=== PATIENT | female | born 1990 | race American Indian/Alaskan Native ===

== ENCOUNTER 2017-12-11 12:16 | Emergency (ER) | payer SELFPAY ==
[2017-12-11 15:55] LABS: Mean Corpuscular HGB Conc 29 % (30-34); Platelet Count 437 K/mm3 (140-440)
[2017-12-11 15:57] LABS: Hematocrit 29.2 % (30.3-42.9); Hemoglobin 8.5 gm/dl (10.1-14.3); Mean Corpuscular Hemoglobin 18 pg (28-32); Mean Corpuscular Volume 61 fl (79-97); Red Cell Distribution Width 20.3 % (13.2-15.2)
--- NOTE | 2017-12-11 16:10 | Cat Scan Report ---
FINAL REPORT PROCEDURE: CT HEAD/BRAIN WO CON TECHNIQUE: Computerized tomography of the head was performed without contrast material. HISTORY: fall, headache. COMPARISON: None FINDINGS: Opacification of few right mastoid air cells is present. The partially visualized paranasal sinuses, left mastoid air cells and bilateral middle ears are clear. Brain volume is age appropriate. There is no CT evident acute infarction. There is no remote infarct, intra or extra-axial hemorrhage. There is no mass effect or hydrocephalus. There is no gross mass lesion or leptomeningeal abnormality given limitation of lack of IV contrast. IMPRESSION: No CT evident acute intracranial process. Small partial opacification of the right mastoid air cells possibly simple effusion or granulation tissue. Clinically exclude active right mastoid inflammation.
[2017-12-11 19:33] VITALS: BP 112/85
[2017-12-11] MEDS ORDERED: MOTRIN PO ONE (20:17)
--- NOTE | 2017-12-11 20:25 | Emergency Department Report ---
ED Syncope HPI - General Chief Complaint: Syncope Stated Complaint: SYNCOPE Time Seen by Provider: 12/11/17 20:05 Source: patient - History of Present Illness Initial Comments: Patient is a 27-year-old female with a history of anemia and abnormal bleeding who presents to ED status post syncopal episode earlier this morning. Patient states she is 10 AM she was at work. Patient states she got up to get some water and did not make it to the water fountain. Patient states she woke up with her coworkers surrounding her and cannot recall does not know how long she was passed out. She patient states she had a syncopal episode a while back and states it due to her anemia due to blood loss. She states she's been on her cycle ongoing for the past 3 months. She states that she takes at home. She sounds a day and takes no other medication. Dizziness issues as no other medical conditions.. She denies fevers/chills/nausea since vomiting/abdominal pain/chest pain. Timing/Prior Episodes: single episode today - Related Data Allergies/Adverse Reactions: Allergies No Known Allergies Allergy (Unverified 12/11/17 14:11) ED Review of Systems ROS: Stated complaint: SYNCOPE Other details as noted in HPI Constitutional: denies: chills, fever Eyes: denies: eye pain, eye discharge, vision change ENT: denies: ear pain, throat pain Respiratory: denies: cough, shortness of breath, wheezing Cardiovascular: denies: chest pain, palpitations Endocrine: no symptoms reported Gastrointestinal: denies: abdominal pain, nausea, diarrhea Genitourinary: denies: urgency, dysuria, discharge Musculoskeletal: denies: back pain, joint swelling, arthralgia Skin: denies: rash, lesions Neurological: denies: headache, weakness, paresthesias Psychiatric: denies: anxiety, depression Hematological/Lymphatic: denies: easy bleeding, easy bruising ED Past Medical Hx - Past Medical History Previous Medical History?: Yes Additional medical history: Anemia hx - Surgical History Past Surgical History?: No - Social History Smoking Status: Never Smoker Substance Use Type: None ED Physical Exam - General Limitations: No Limitations General appearance: alert, in no apparent distress - Head Head exam: Present: atraumatic, normocephalic - Eye Eye exam: Present: normal appearance - ENT ENT exam: Present: mucous membranes moist - Neck Neck exam: Present: normal inspection - Respiratory Respiratory exam: Present: normal lung sounds bilaterally. Absent: respiratory distress, wheezes - Cardiovascular Cardiovascular Exam: Present: regular rate, normal rhythm. Absent: systolic murmur, diastolic murmur, rubs, gallop - GI/Abdominal GI/Abdominal exam: Present: soft, normal bowel sounds - Extremities Exam Extremities exam: Present: normal inspection - Back Exam Back exam: Present: normal inspection - Neurological Exam Neurological exam: Present: alert, oriented X3 - Psychiatric Psychiatric exam: Present: normal affect, normal mood - Skin Skin exam: Present: warm, dry, intact, normal color. Absent: rash ED Course Vital Signs 12/11/17 12/11/17 12/11/17 14:07 19:32 20:31 Temperature 98.1 F 97.5 F L Pulse Rate 79 77 Respiratory 16 17 16 Rate Blood Pressure 116/85 Blood Pressure 112/85 [Left] O2 Sat by Pulse 100 100 Oximetry ED Medical Decision Making - Lab Data Result diagrams: 12/11/17 14:53 12/11/17 20:33 - EKG Data EKG shows normal: sinus rhythm Rate: normal - Radiology Data Radiology results: report reviewed, image reviewed FINAL REPORT PROCEDURE: CT HEAD/BRAIN WO CON TECHNIQUE: Computerized tomography of the head was performed without contrast material. HISTORY: fall, headache. COMPARISON: None FINDINGS: Opacification of few right mastoid air cells is present. The partially visualized paranasal sinuses, left mastoid air cells and bilateral middle ears are clear. Brain volume is age appropriate. There is no CT evident acute infarction. There is no remote infarct, intra or extra-axial hemorrhage. There is no mass effect or hydrocephalus. There is no gross mass lesion or leptomeningeal abnormality given limitation of lack of IV contrast. IMPRESSION: No CT evident acute intracranial process. Small partial opacification of the right mastoid air cells possibly simple effusion or granulation tissue. Clinically exclude active right mastoid inflammation. Transcribed By: PETAR Dictated By: DELANEY TORRES MD Electronically Authenticated By: DELANEY TORRES MD Signed Date/Time: 12/11/17 1204 - Medical Decision Making 27-year-old female presents with syncopal episode. ED course: Patient is in no acute or respiratory distress. Vital signs stable. Patient reports feeling better and is in no pain. CBC: Within normal limits CMP:within normal limits Urinalysis and UPT: Negative EKG: See above Head CT: No evidence of acute intracranial process Discussed with patient lab findings -see above Patient is a low risk due to Marine syncopy rule. Patient has no history of congestive heart failure, hematocrit greater than 30, EKG within normal limits, denies shortness of breath and systolic pressure greater than 90. Orthostatic blood pressure: Normal Patient states she understands and will comply to follow-up. 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 Critical care attestation.: If time is entered above; I have spent that time in minutes in the direct care of this critically ill patient, excluding procedure time. ED Disposition Clinical Impression: Syncopal episodes Qualifiers: Syncope type: unspecified Qualified Code(s): R55 - Syncope and collapse Anemia Qualifiers: Anemia type: iron deficiency Iron deficiency anemia type: other iron deficiency Qualified Code(s): D50.8 - Other iron deficiency anemias Disposition: TO HOME OR SELFCARE Is pt being admited?: No Does the pt Need Aspirin: No Condition: Stable Instructions: Dysfunctional Uterine Bleeding (ED), Syncope (ED), Menorrhagia ( ED), Lightheadedness (ED) Additional Instructions: Make sure to follow up with the primary care physician as discussed. Make sure you are easy to 4 minutes per day. She increase her fluid intake daily. Continue to take your iron pills daily All labs and radiology studies in the ED were all normal If you have any worsening symptoms or develop new symptoms please return to ED immediately. Referrals: PRIMARY CARE, [Primary Care Provider] - 3-5 Days JHOANA LANCASTER MD [Referring] - 3-5 Days [facility] [Outside] - 3-5 Days LAYLA MAI MD [Staff Physician] - 3-5 Days RHEA GRANDE MD [Staff Physician] - 3-5 Days MAGALY GRANDE MD [Referring] - 3-5 Days ANGELICA GRANDE MD [Referring] - 3-5 Days Forms: Work/School Release Form(ED) Time of Disposition: 21:52
[2017-12-11 21:09] LABS: Alanine Aminotransferase 22 units/L (7-56); Albumin 4.7 g/dL (3.9-5); BUN/Creatinine Ratio 11; Blood Urea Nitrogen 8 mg/dL (7-17); Calcium 9.3 mg/dL (8.4-10.2); Hemolysis Index 10
[2017-12-11 21:30] LABS: HCG Qualitative,Urine Negative (Negative)
[2017-12-11 21:33] LABS: Bilirubin,Urine NEG (Negative); Color,Urine Yellow (Yellow); Mucus,Urine 2+ /HPF; Nitrite,Urine NEG (Negative); Protein,Urine <15 mg/dL mg/dL (Negative); Urobilinogen,Urine < 2.0 mg/dL (<2.0)
[2017-12-11 21:38] LABS: Blood,Urine Moderate (Negative)
== END 2017-12-11 22:05 | disposition home or self-care (01) ==
LOC: ED 12:16
DX: D64.9 Anemia, unspecified (principal)
CPT/HCPCS: 36415; 70450; 80053; 81001; 81025; 82140; 85027; 93005; 93010; 99284

== ENCOUNTER 2019-09-11 08:25 | Emergency (ER) | payer BC, OTHER ==
[2019-09-11 09:50] LABS: Mean Corpuscular HGB Conc 25 % (30-34); Platelet Count 262 K/mm3 (140-440)
[2019-09-11 09:57] LABS: Hematocrit 30.2 % (30.3-42.9); Hemoglobin 7.6 gm/dl (10.1-14.3); Mean Corpuscular Volume 52 fl (79-97)
[2019-09-11 09:58] LABS: Red Cell Distribution Width 24.1 % (13.2-15.2)
--- NOTE | 2019-09-11 10:00 | Emergency Department Report ---
HPI - General Chief Complaint: Abdominal Pain Time Seen by Provider: 09/11/19 09:46 - HPI HPI: Room 17 The patient is a 29-year-old female presenting with chief complaint of abdominal pain. The patient says she is had intermittent lower abdominal pain for approximately 4 days. Patient describes the pain as sharp and nonradiating. Patient states she's had slight dysuria since yesterday. Patient denies vaginal discharge or vaginal bleeding. Patient denies hematuria. Patient also states she's had lightheadedness for the past 3 days and increases upon standing. The patient states 1 week ago she noticed a swelling on the inside of her lower lip. Patient denies any trauma or drainage from the lesion. The patient states she took Benadryl and some "leftover" penicillin but it has not helped. Patient denies any history of fever Location: [See above] Duration: [See above] Quality: [See above] Severity: [See above] Timing: [See above] Context: [See above] Modifying factors: [See above] Associated signs and symptoms: [see above] ED Past Medical Hx - Past Medical History Previous Medical History?: Yes Additional medical history: Anemia hx - Surgical History Past Surgical History?: No - Family History Family history: no significant - Social History Smoking Status: Never Smoker Substance Use Type: None (denies illicit drug use) - Medications Home Medications: Home Medications Medication Instructions Recorded Confirmed Last Taken Type Ibuprofen [Motrin] 800 mg PO Q8HR PRN #20 tablet 12/11/17 Unknown Rx Azithromycin [Zithromax Z-MANUEL] 250 mg PO DAILY #6 tablet 03/01/19 Unknown Rx Benzonatate [Tessalon Perles] 100 mg PO Q12H PRN #20 capsule 03/01/19 Unknown Rx Ibuprofen [Motrin] 600 mg PO Q8H PRN #20 tablet 03/01/19 Unknown Rx Prednisone [predniSONE 10 mg 10 mg PO .TAPER #1 tab.ds.pk 03/01/19 Unknown Rx (6-Day Pack, 21 Tabs)] ED Review of Systems ROS: Stated complaint: LOW ABD PAIN/LOW IRON CT Other details as noted in HPI Constitutional: denies: fever Eyes: denies: eye pain ENT: other (lip pain) Respiratory: no symptoms reported Cardiovascular: denies: chest pain Endocrine: no symptoms reported Gastrointestinal: abdominal pain. denies: nausea, vomiting, diarrhea Genitourinary: denies: dysuria Musculoskeletal: denies: back pain Neurological: denies: headache Physical Exam - Physical Exam Vital Signs: Vital Signs 09/11/19 09:00 Temperature 98.8 F Pulse Rate 93 H Respiratory 18 Rate Blood Pressure 126/43 O2 Sat by Pulse 100 Oximetry Physical Exam: GENERAL: The patient is well-developed well-nourished female lying on stretcher not appearing to be in acute distress. [] HEENT: Normocephalic. Atraumatic. Extraocular motions are intact. Patient has moist mucous membranes. There is an approximately 1 cm diameter cystic appearing lesion inside of the lower left lip. There is no surrounding eryt carlito. There is no drainage NECK: Supple. No meningitic signs are noted. There is no adenopathy noted. CHEST/LUNGS: Clear to auscultation. There is no respiratory distress noted. HEART/CARDIOVASCULAR: Regular. There is no tachycardia. There is no gallop rub or murmur. ABDOMEN: Abdomen is soft, with mild discomfort to palpation in the right lower quadrant, suprapubic and left lower quadrant. Patient has normal bowel sounds. There is no abdominal distention. SKIN: There is no rash. There is no edema. There is no diaphoresis. NEURO: The patient is awake, alert, and oriented. The patient is cooperative. The patient has normal speech MUSCULOSKELETAL: There is no evidence of acute injury. ED Course Vital Signs 09/11/19 09:00 Temperature 98.8 F Pulse Rate 93 H Respiratory 18 Rate Blood Pressure 126/43 O2 Sat by Pulse 100 Oximetry ED Medical Decision Making - Lab Data Result diagrams: 09/11/19 08:41 09/11/19 08:41 Laboratory Tests 09/11/19 09/11/19 09/11/19 08:41 08:41 08:41 WBC 4.8 RBC 5.80 H Hgb 7.6 L Hct 30.2 L MCV 52 L MCH 13 L MCHC 25 L RDW 24.1 H Plt Count 262 Sodium 141 Potassium 4.4 Chloride 103.2 Carbon Dioxide 22 Anion Gap 20 BUN 10 Creatinine 0.7 Estimated GFR > 60 BUN/Creatinine Ratio 14 Glucose 82 Calcium 9.3 Total Bilirubin 0.20 AST 16 ALT 12 Alkaline Phosphatase 74 Total Protein 8.0 Albumin 4.6 Albumin/Globulin Ratio 1.4 Lipase 44 HCG, Quant < 2 Urine Color Urine Turbidity Urine pH Ur Specific [place] Urine Protein Urine Glucose (UA) Urine Ketones Urine Blood Urine Nitrite Urine Bilirubin Urine Urobilinogen Ur Leukocyte Esterase Urine WBC (Auto) Urine RBC (Auto) U Epithel Cells (Auto) 09/11/19 11:43 WBC RBC Hgb Hct MCV MCH MCHC RDW Plt Count Sodium Potassium Chloride Carbon Dioxide Anion Gap BUN Creatinine Estimated GFR BUN/Creatinine Ratio Glucose Calcium Total Bilirubin AST ALT Alkaline Phosphatase Total Protein Albumin Albumin/Globulin Ratio Lipase HCG, Quant Urine Color Straw Urine Turbidity Clear Urine pH 8.0 H Ur Specific [place] 1.009 Urine Protein <15 mg/dl Urine Glucose (UA) Neg Urine Ketones Neg Urine Blood Neg Urine Nitrite Neg Urine Bilirubin Neg Urine Urobilinogen < 2.0 Ur Leukocyte Esterase Neg Urine WBC (Auto) < 1.0 Urine RBC (Auto) < 1.0 U Epithel Cells (Auto) 3.0 - EKG Data -: EKG Interpreted by Id EKG shows normal: sinus rhythm Rate: normal - EKG Data When compared to previous EKG there are: previous EKG unavailable Interpretation: normal EKG, nonspecific ST-T wave aristides (T-wave inversion in lead 3) - Differential Diagnosis UTI, cystitis, Critical care attestation.: If time is entered above; I have spent that time in minutes in the direct care of this critically ill patient, excluding procedure time. ED Disposition Clinical Impression: Acute abdominal pain, Mucocele of lower lip Disposition: Z07 ELOPED Is pt being admited?: No Does the pt Need Aspirin: No Condition: Undetermined Instructions: Abdominal Pain (ED) Referrals: PRIMARY CARE, [Primary Care Provider] - 3-5 Days Time of Disposition: 13:32 (patient eloped)
[2019-09-11 11:43] LABS: Alanine Aminotransferase 12 units/L (7-56); Albumin 4.6 g/dL (3.9-5); BUN/Creatinine Ratio 14; Blood Urea Nitrogen 10 mg/dL (7-17); Calcium 9.3 mg/dL (8.4-10.2); Hemolysis Index 1
[2019-09-11 11:50] LABS: Bilirubin,Urine NEG (Negative); Blood,Urine NEG (Negative); Color,Urine Straw (Yellow); Protein,Urine <15 mg/dL mg/dL (Negative); RBC,Urine < 1.0 /HPF (0.0-6.0); Urobilinogen,Urine < 2.0 mg/dL (<2.0); WBC,Urine < 1.0 /HPF (0.0-6.0)
[2019-09-11 20:03] VITALS: BP 122/83
== END 2019-09-11 13:49 | disposition left against medical advice (07) ==
LOC: ED 08:25
DX: K11.6 Mucocele of salivary gland (principal); Z79.1 Long term (current) use of non-steroidal anti-inflammatories (NSAID); Z79.899 Other long term (current) drug therapy
CPT/HCPCS: 36415; 80053; 81001; 83690; 84702; 85027; 93005; 93010; 99283

== ENCOUNTER 2020-11-07 16:48 | Emergency (ER) | payer SELFPAY ==
[2020-11-07 18:02] VITALS: BP 121/82
== END 2020-11-07 18:00 | disposition left against medical advice (07) ==
LOC: ED 16:48
DX: R51.9 Headache, unspecified (principal); Z53.21 Procedure and treatment not carried out due to patient leaving prior to being seen by health care provider